=== PATIENT | female | born 1940 | race Caucasian/White ===

== ENCOUNTER 2024-03-10 14:56 | Inpatient (IN) | payer MEDICARE, OTHER ==
[~2024-03-10] VITALS: Ht 157.5 cm; Wt 59.2 kg
[2024-03-10] MEDS ORDERED: OLANZAPINE 10 MG VIAL IM ONE (15:27)
[2024-03-10] MEDS ORDERED: WATER FOR INJECTION,STERILE 10 ML ONE (15:30)
[2024-03-10] MEDS: OLANZAPINE 10 MG VIAL IM ONE (15:37)
[2024-03-10 16:07] LABS: BASOPHILS % (AUTO) 0.6 % (0.0-2.0); EOSINOPHILS # (AUTO) 0.3 K/uL (0.0-0.7); HEMATOCRIT 43 % (33-45); HEMOGLOBIN 13.7 g/dL (11.5-14.8); LYMPHOCYTES # (AUTO) 1.9 K/uL (0.8-4.8); LYMPHOCYTES % (AUTO) 22.8 % (20.0-44.0); MEAN CORPUSCULAR HEMOGLOBIN 27 PG (26.0-33.0); MEAN CORPUSCULAR HGB CONC 32 g/dl (31.0-36.0); MEAN CORPUSCULAR VOLUME 85 fL (82-100); MONOCYTES # (AUTO) 0.8 K/uL (0.1-1.30); MONOCYTES % (AUTO) 9.5 % (2.0-12.0); NEUTROPHILS # (AUTO) 5.5 K/uL (1.8-8.9); NEUTROPHILS % (AUTO) 64.1 % (43.0-81.0); PLATELET COUNT (AUTO) 211 K/uL (150-450); RED BLOOD CELL COUNT(AUTO) 5.07 MIL/uL (4.0-5.2); RED CELL DISTRIBUTION WIDTH 15.9 % (11.5-15.0); WHITE BLOOD COUNT (AUTO) 8.5 K/uL (4.3-11.0)
[2024-03-10 16:21] LABS: ALCOHOL, BLOOD < 3 mg/dL (0-10)
[2024-03-10 16:24] LABS: ALANINE AMINOTRANSFERASE 13 U/L (12-78); ALBUMIN 3.3 g/dL (3.4-5.0); ALKALINE PHOSPHATASE 113 U/L (46-116); ASPARTATE AMINOTRANSFERASE 15 U/L (15-37); BILIRUBIN,DIRECT 0.1 mg/dL (0.0-0.2); BILIRUBIN,TOTAL 0.4 mg/dL (0.2-1.0); CALCIUM, SERUM 9.2 mg/dL (8.5-10.1); CARBON DIOXIDE 27 mmol/L (21-32); CHLORIDE 108 mmol/L (98-107); CREATININE 0.5 mg/dL (0.6-1.3); GLUCOSE 112 mg/dL (74-106); POTASSIUM 3.7 mmol/L (3.5-5.1); SODIUM SERUM 144 mmol/L (136-145); UREA NITROGEN, BLOOD 12 mg/dL (7-18)
[2024-03-10 16:25] LABS: APPEARANCE,URINE SLIGHTLY CLOUDY (CLEAR); BILIRUBIN,URINE NEGATIVE (NEGATIVE); BLOOD, URINE NEGATIVE Ery/uL (NEGATIVE); COLOR,URINE YELLOW (YELLOW); KETONES,URINE NEGATIVE (NEGATIVE); LEUKOCYTE ESTERASE ,URINE 3+ (NEGATIVE); NITRITE, URINE POSITIVE (NEGATIVE); PROTEIN,URINE NEGATIVE (NEGATIVE); UGLUCOSE NEGATIVE (NEGATIVE)
[2024-03-10 16:27] LABS: ACETAMINOPHEN <10 ug/ml (10-30); SALICYLATE 1.2 mg/dL (2.8-20.0)
[2024-03-10 16:33] LABS: INR 1.03 (0.91-1.10); PARTIAL THROMBOPLASTIN TIME 27.1 SEC (24.3-34.3); PROTHROMBIN TIME 10.9 SECS (9.2-11.1)
[2024-03-10 16:35] LABS: ADD URINE CULTURE YES; RBC,URINE 0-2 /HPF (0-2); WBC,URINE 81-100 /HPF (0-3)
[2024-03-10 16:36] LABS: BACTERIA,URINE 3+ /HPF (None Seen); SQUAMOUS EPITHELIAL CELL,UR 0-2 /HPF (None Seen)
[2024-03-10 16:37] LABS: AMPHETAMINE, URINE NEGATIVE (NEGATIVE); BARBITURATE, URINE NEGATIVE (NEGATIVE); BENZODIAZEPINE, URINE NEGATIVE (NEGATIVE); CANNABINOID, URINE NEGATIVE (NEGATIVE); COCCAINE, URINE NEGATIVE (NEGATIVE); OPIATE, URINE NEGATIVE (NEGATIVE); PHENCYCLIDINE SCREEN,URINE NEGATIVE (NEGATIVE)
[2024-03-10] MEDS ORDERED: CYAN100096 PO (16:38)
[2024-03-10] MEDS ORDERED: METF-442 PO (16:38)
[2024-03-10] MEDS ORDERED: CHOL100043 PO (16:38)
[2024-03-10] MEDS ORDERED: NITR100C PO (16:38)
[2024-03-10] MEDS ORDERED: INSU100I26 SQ (16:38)
[2024-03-10] MEDS ORDERED: ACET325T53 PO (16:38)
[2024-03-10] MEDS ORDERED: LOSA100T31 PO (16:38)
[2024-03-10] MEDS ORDERED: ATOR20TA PO (16:38)
[2024-03-10] MEDS ORDERED: NIFE30TA91 PO (16:38)
[2024-03-10] MEDS ORDERED: ACET-73 PO (16:38)
[2024-03-10] MEDS ORDERED: DIVA125T32 PO (16:38)
[2024-03-10] MEDS ORDERED: INSU100I47 SQ (16:38)
[2024-03-10] MEDS ORDERED: MAGN400T52 PO (16:38)
[2024-03-10] MEDS ORDERED: PROP40TA7 PO (16:38)
[2024-03-10] MEDS ORDERED: LORA2ORA5 PO (16:38)
[2024-03-10] MEDS ORDERED: TRAZ-252 PO (16:38)
[2024-03-10] MEDS ORDERED: INSU100V42 SQ (16:38)
[2024-03-10] MEDS ORDERED: QUET25TA PO (16:38)
[2024-03-10] MEDS: hydrALAZINE HCL IV 20 MG VIAL IV PRN (17:23)
[2024-03-10] MEDS ORDERED: hydrALAZINE HCL IV 20 MG VIAL ONE (17:25)
[2024-03-10] MEDS ORDERED: Z GUARD REMEDY 4 OZ OINT TP PRN (17:30)
[2024-03-10] MEDS ORDERED: DEXTROSE 50%-WATER 50 ML DISP.SYRIN IV PRN (17:30)
[2024-03-10] MEDS ORDERED: ONDANSETRON HCL/PF 4 MG/2 ML VIAL IVP PRN (17:30)
[2024-03-10] MEDS ORDERED: MAGNESIUM HYDROXIDE 30 ML UDC PO PRN (17:30)
[2024-03-10] MEDS ORDERED: CEFTRIAXONE 1 G in IV D5W 50 ML IV SCH (17:30)
[2024-03-10] MEDS ORDERED: MAG HYDROX/AL HYDROX/SIMETH 30 ML UDC PO PRN (17:30)
[2024-03-10] MEDS: LORAZEPAM INJ 2 MG/ML VIAL IV PRN (17:46)
[2024-03-10] MEDS ORDERED: LORAZEPAM INJ 2 MG/ML VIAL ONE (17:47)
[2024-03-10] MEDS: BLOOD SUGAR DIAGNOSTIC 1 EACH STRIP IN SCH (18:57)
[2024-03-10 20:00] VITALS: BP 146/97; TEMP 98.1; O2SAT 92
[2024-03-10] MEDS: IV NS 0.9% 1,000 ML IV PRN (20:23)
[2024-03-10] MEDS: CIPROFLOXACIN IV RTU 400 MG in PREMIX 1 EA IV SCH (20:33)
[2024-03-10] MEDS ORDERED: ZOLPIDEM TARTRATE 5 MG TABLET PO PRN (22:00)
[2024-03-10] MEDS: TRAZODONE 50 MG TABLET PO SCH (22:11)
[2024-03-10] MEDS: ATORVASTATIN 10 MG TABLET PO SCH (22:11)
[2024-03-11] MEDS: ACETAMINOPHEN 325 MG TABLET PO PRN (00:28)
[2024-03-11 06:24] LABS: BASOPHILS % (AUTO) 0.3 % (0.0-2.0); EOSINOPHILS # (AUTO) 0.2 K/uL (0.0-0.7); EOSINOPHILS % (AUTO) 1.9 % (0.0-6.0); HEMATOCRIT 43 % (33-45); HEMOGLOBIN 13.9 g/dL (11.5-14.8); LYMPHOCYTES # (AUTO) 1.5 K/uL (0.8-4.8); LYMPHOCYTES % (AUTO) 14.5 % (20.0-44.0); MEAN CORPUSCULAR HEMOGLOBIN 27 PG (26.0-33.0); MEAN CORPUSCULAR HGB CONC 32 g/dl (31.0-36.0); MEAN CORPUSCULAR VOLUME 85 fL (82-100); MONOCYTES # (AUTO) 1.2 K/uL (0.1-1.30); MONOCYTES % (AUTO) 11.2 % (2.0-12.0); NEUTROPHILS # (AUTO) 7.4 K/uL (1.8-8.9); NEUTROPHILS % (AUTO) 72.1 % (43.0-81.0); PLATELET COUNT (AUTO) 198 K/uL (150-450); RED BLOOD CELL COUNT(AUTO) 5.09 MIL/uL (4.0-5.2); WHITE BLOOD COUNT (AUTO) 10.3 K/uL (4.3-11.0)
[2024-03-11 06:57] LABS: CALCIUM, SERUM 8.9 mg/dL (8.5-10.1); CARBON DIOXIDE 31 mmol/L (21-32); CHLORIDE 107 mmol/L (98-107); CREATININE 0.5 mg/dL (0.6-1.3); GLUCOSE 76 mg/dL (74-106); MAGNESIUM 1.9 mg/dL (1.8-2.4); PHOSPHORUS 3.5 mg/dL (2.5-4.9); SODIUM SERUM 144 mmol/L (136-145); UREA NITROGEN, BLOOD 8 mg/dL (7-18)
[2024-03-11 07:30] VITALS: BP_SYST 127; BP_SYST 159; BP_DIAS 85; BP_DIAS 86; TEMP 97.6; TEMP 97.7; O2SAT 100; O2SAT 98
[2024-03-11 07:52] LABS: POTASSIUM 2.6 mmol/L (3.5-5.1)
[2024-03-11] MEDS: MAGNESIUM OXIDE 400 MG TABLET PO SCH (08:31)
[2024-03-11] MEDS: NIFEdipine XL (30MG) 30 MG TAB PO SCH (08:31)
[2024-03-11] MEDS: METFORMIN 500 MG TABLET PO SCH (08:31)
[2024-03-11] MEDS: CYANOCOBALAMIN 500 MCG TABLET PO SCH (08:31)
[2024-03-11] MEDS: PROPRANOLOL HCL 40 MG TABLET PO SCH (08:31)
[2024-03-11] MEDS: DIVALPROEX SODIUM 125 MG TABLET.DR PO SCH ×2 (08:31→16:40)
[2024-03-11] MEDS: CHOLECALCIFEROL 1,000 UNIT TABLET (VIT D3) PO SCH (08:32)
[2024-03-11] MEDS: QUETIAPINE FUMARATE 25 MG TABLET PO SCH (08:32)
[2024-03-11] MEDS: LOSARTAN POTASSIUM 50 MG TABLET PO SCH (08:46)
[2024-03-11] MEDS: CLOTRIMAZOLE 1% 15 GM TUBE TP SCH (09:41)
[2024-03-11] MEDS ORDERED: LORAZEPAM 1 MG TABLET PO PRN (10:00)
[2024-03-11] MEDS: POTASSIUM CHLORIDE 20 MEQ TAB.PRT.SR PO SCH (10:10)
[2024-03-11 15:53] VITALS: BP 116/62; TEMP 97.7; O2SAT 100
[2024-03-11 20:00] VITALS: BP 126/72; TEMP 97.5; O2SAT 95
[2024-03-11] MEDS: MIRTAZAPINE 15 MG TABLET PO SCH (22:13)
[2024-03-12 07:30] VITALS: BP 164/88; TEMP 97.2; O2SAT 96
[2024-03-12] MEDS: INSULIN REGULAR, HUMAN 100 UNIT/ML 3 ML VIAL SQ PRN (11:49)
[2024-03-12 16:00] VITALS: BP 126/57; TEMP 97.2; O2SAT 98
[2024-03-12 20:00] VITALS: BP 113/49; TEMP 98.1; O2SAT 97
[2024-03-13 08:00] VITALS: BP 186/66; TEMP 98.8; O2SAT 96
[2024-03-13] MEDS ORDERED: NITR100C6 PO (12:23)
[2024-03-13] MEDS ORDERED: ACET325T53 PO (12:23)
[2024-03-13] MEDS ORDERED: MIRT-121 PO (12:23)
[2024-03-13] MEDS ORDERED: DIVA125T2 PO (12:23)
[2024-03-13] MEDS ORDERED: CLOT15CR35 TP (12:23)
[2024-03-13] MEDS ORDERED: CIPROFLOXACIN HCL 500 MG TABLET PO SCH (18:00)
== END 2024-03-13 17:50 | DRG 640 ==
LOC: ER 14:57 → MED 16:32 → TELE 03-13 10:40 → MED 03-13 10:45
PROVIDERS: ADMIT Nurse Practitioner Acute Care; ATTEND Nurse Practitioner Acute Care
DX: R62.7 Adult failure to thrive (principal); G93.41 Metabolic encephalopathy; N39.0 Urinary tract infection, site not specified; E44.1 Mild protein-calorie malnutrition; Z20.822 Contact with and (suspected) exposure to COVID-19; Z88.8 Allergy status to other drugs, medicaments and biological substances; Z91.048 Other nonmedicinal substance allergy status; Z88.0 Allergy status to penicillin; Z79.4 Long term (current) use of insulin; Z79.84 Long term (current) use of oral hypoglycemic drugs; Z79.899 Other long term (current) drug therapy; B96.89 Other specified bacterial agents as the cause of diseases classified elsewhere; Z91.148 Patient's other noncompliance with medication regimen for other reason; F03.90 Unspecified dementia, unspecified severity, without behavioral disturbance, psychotic disturbance, mood disturbance, and anxiety; I10 Essential (primary) hypertension; E11.9 Type 2 diabetes mellitus without complications; E88.09 Other disorders of plasma-protein metabolism, not elsewhere classified; F29 Unspecified psychosis not due to a substance or known physiological condition; R45.1 Restlessness and agitation; B96.20 Unspecified Escherichia coli [E. coli] as the cause of diseases classified elsewhere; Z78.1 Physical restraint status; Z87.440 Personal history of urinary (tract) infections
CPT/HCPCS: 36415; 71045-TC; 80048-TC; 80076-TC; 81001; 82962-TC; 83735-TC; 84100-TC; 84443-TC; 84484-TC; 85025-TC; 85730-TC; 87081-TC; 87086-TC; 97116-TC; 97530-TC; A4216; A4223; G0378; G0480; J0360; J0744; J1815; J2060; J3490; J7030